=== PATIENT | male | born 1980 | race Caucasian/White ===

== ENCOUNTER 2022-11-14 17:54 | Emergency (ER) | payer OTHER, BC, SELFPAY ==
[2022-11-14 17:59] VITALS: BP 131/87; PULSE 67; RESP 20; TEMP 36.8; O2SAT 95; BMI 33.7
--- NOTE | 2022-11-14 18:03 | XR_ITS ---
The [address] [address] Patient Name: EDMOND BAUM MRN: [id number] date: 1980 Sex: M Assigned Patient Location: ER Current Patient Location: ED.MAIN Accession/Order Number: [id number] Exam Date: 11/14/2022 18:08 Report Date: 11/14/2022 18:46 At the request of: SANAM COLEMAN Procedure: XR hand RT min 3V EXAM: XR hand RT min 3V HISTORY: injury COMPARISON: None. TECHNIQUE: 3 views of the right hand FINDINGS: There is no acute fracture-dislocation. The soft tissue is unremarkable. IMPRESSION: No acute fracture. Electronically authenticated by: JHOAN LERNER Date: 11/14/2022 18:46
--- NOTE | 2022-11-14 18:06 | ED.UPPEXIN1 ---
HPI - Extremity Injury (Upper) General Chief Complaint: Extremity Injury, Upper Stated Complaint: UPPER INJURY RIGHT HAND Time Seen by Provider: 11/14/22 18:03 Source: patient Mode of arrival: walk-in Limitations: no limitations History of Present Illness HPI narrative: Patient is a 41-year-old male who presents to the emergency department for the evaluation of an injury to the right hand that occurred yesterday. He states he was at work when his hand became caught and he pulled his hand and forearm out, he sustained multiple small abrasions to the forearms but complained of pain over the dorsum of the right hand at the 3rd and 4th MCP joints. Unknown last tetanus. No other associated injuries. He denies numbness or chilling to the fingers. He complains of pain only in the hand at this time. No medications prior to arrival. Related Data Home Medications Medication Instructions Recorded Confirmed No Known Home Medications 11/14/22 11/14/22 Previous Rx's Medication Instructions Recorded ketorolac 10 mg tablet 10 mg PO TID PRN pain #10 tabs 11/14/22 Allergies Allergy/AdvReac Type Severity Reaction Status Date / Time No Known Drug Allergies Allergy Verified 11/14/22 17:58 Review of Systems ROS Constitutional Denies: fever or chills Ears, nose, mouth, and throat Denies: neck pain Respiratory Denies: shortness of breath or cough Gastrointestinal Denies: nausea or vomiting Integumentary/Breast Denies: rash PFSH PFS Social History Smoking status: Heavy tobacco smoker Exam Narrative Exam Narrative: Gen.: Awake, alert, in no distress Head: Normocephalic, atraumatic ENT: Moist mucous membranes Respiratory: No respiratory distress Extremities: Moves extremities equally, multiple superficial abrasions to the forearm. Tenderness and swelling over the dorsum of the right hand at the 3rd and 4th MCP joints. Normal flexion and extension of the fingers of the right hand. 2+ right radial pulse Psych: Normal mood and affect Neuro: No focal neuro deficit Skin: Warm, dry, intact Constitutional Vital Signs - 24 hr 11/14/22 17:59 Temperature 98.3 F Pulse Rate [Monitor] 67 Respiratory Rate 20 Blood Pressure [Left Radial Artery] 131/87 H Pulse Oximetry 95 Course Vital Signs Vital signs: Vital Signs Temperature 98.3 F 11/14/22 17:59 Pulse Rate 67 11/14/22 17:59 Respiratory Rate 20 11/14/22 17:59 Blood Pressure 131/87 H 11/14/22 17:59 Pulse Oximetry 95 11/14/22 17:59 Temperature 98.3 F 11/14/22 17:59 Pulse Rate 67 11/14/22 17:59 Respiratory Rate 20 11/14/22 17:59 Blood Pressure 131/87 H 11/14/22 17:59 Pulse Oximetry 95 11/14/22 17:59 MDM - Extremity Injury (Upper) MDM Narrative Medical decision making narrative: X-rays with no evidence of fracture or dislocation. Patient placed in an Cristiano wrap. Tetanus updated in the Emergency Room. He remains neurovascularly intact. Rest, ice, elevate. NSAIDs given for home. Follow-up with occupational health Medical Records Attestation: I reviewed the patient's medical records. Imaging Data Hand x-ray: Attestation: I have reviewed the pertinent imaging results. Radiologist's impression: Procedure: XR hand RT min 3V EXAM: XR hand RT min 3V HISTORY: injury COMPARISON: None. TECHNIQUE: 3 views of the right hand FINDINGS: There is no acute fracture-dislocation. The soft tissue is unremarkable. IMPRESSION: No acute fracture. Electronically authenticated by: JHOAN LERNER Date: 11/14/2022 18:46 Discharge Plan Discharge Chief Complaint: Extremity Injury, Upper Clinical Impression: Contusion of hand, right, Abrasion forearm Patient Disposition: Home, Self-Care Time of Disposition Decision: 18:42 Condition: Good Prescriptions / Home Meds: New ketorolac 10 mg tablet 10 mg PO TID PRN (Reason: pain) Qty: 10 0RF No Action No Known Home Medications Instructions: Contusion in Adults (ED), Abrasion (ED) Additional Instructions: Follow up with occupational health in 3-5 days. [phone] Ext [phone] Stand Alone Forms: Portal Instructions Referrals: Physician,Non-Staff, MD [Primary Care Provider] - 1 week Discharge Date/Time: 11/14/22 19:08
[2022-11-14] MEDS: ADACEL DIPH,PERTUSS(ACELL),TET VAC/PF 0.5 ML ADULT SYRINGE IM (18:21)
== END 2022-11-14 19:08 | disposition home or self-care (01) ==
PROVIDERS: Emergency Provider Emergency Medicine
DX: S60.221A Contusion of right hand, initial encounter (principal); S50.811A Abrasion of right forearm, initial encounter; W23.0XXA Caught, crushed, jammed, or pinched between moving objects, initial encounter; Z23 Encounter for immunization
CPT/HCPCS: 73130; 90471; 90715; 99283